=== PATIENT | male | born 1965 | race Caucasian/White ===

== ENCOUNTER 2017-01-21 08:24 | Inpatient (IN) | payer MEDICAID ==
[2017-01-21] MEDS ORDERED: ASPIRIN CHEWTAB 81 MG TABLET ONE (08:45)
[2017-01-21] MEDS ORDERED: METOPROLOL TARTRATE 1 MG/ML 5ML VIAL ONE ×2 (08:46→12:47)
[2017-01-21 08:51] LABS: ABSOLUTE NEUTROPHIL COUNT 4.7 K/mm3 (1.8-7.7); BASO # 0.1 K/mm3 (0.0-0.2); BASO % 1.3 % (0.2-1.0); EOS # 0.3 (0.0-0.5); EOS % 4.1 % (0.9-2.9); HEMATOCRIT 50.2 % (32.0-52.0); HEMOGLOBIN 17.9 gm/l (14.0-18.0); IMM NEUT% 0.4 % (0-1); LYMPH % 25.6 % (15-45); MEAN CELL VOLUME 85.1 fl (80.0-94.0); MEAN CORPUSCULAR HEMOGLOBIN 30.3 pg (27.0-31.0); MEAN CORPUSCULAR HGB CONC 35.7 g/dl (33.0-37.0); MEAN PLATELET VOLUME 9.9 fl (7.4-10.4); MONO # 0.7 (0.0-0.8); MONO % 8.6 % (4-12); PLATELET COUNT 310 K/mm3 (130-400); RED CELL DISTRIBUTION WIDTH 13.3 % (11.5-14.5)
[2017-01-21 09:03] LABS: ALB/GLOB RATIO 1.1 (>1.0); ALBUMIN 4.2 gm/dL (3.5-5.7); CALCIUM 9.3 mg/dL (8.6-10.3)
[2017-01-21 09:06] LABS: TROPONIN I 0.02 ng/ml (0.0-0.06)
--- NOTE | 2017-01-21 09:09 | RAD ---
01/21/2017 9:04 AM CHEST-AP BEDSIDE History: Chest pain Comparison: None Findings: Single AP view of the chest is obtained. The lungs are clear with out effusion or pneumothorax. The cardiomediastinal silhouette is unremarkable.. The osseous structures are intact.. IMPRESSION: No acute intrathoracic process.
[2017-01-21 09:10] LABS: CKMB ISOENZYME 3.1 ng/ml (0.6-6.3)
[2017-01-21] MEDS ORDERED: NITROGLYCERIN OINT 1 G (DOSE) ONE (10:19)
[2017-01-21] MEDS ORDERED: METOPROLOL TARTRATE 1 MG/ML 5ML VIAL IV SCH (12:30)
[2017-01-21] MEDS ORDERED: BISACODYL 10 MG SUP PR PRN (16:12)
[2017-01-21] MEDS ORDERED: SODIUM CHLORIDE 0.9% 100 ML IV PRN (16:12)
[2017-01-21] MEDS ORDERED: BISACODYL 5 MG TABLET.EC PO PRN (16:12)
[2017-01-21] MEDS ORDERED: MENTHOL/CETYLPYRD 1 EACH LOZENGE PO PRN (16:12)
[2017-01-21] MEDS ORDERED: BLISTEX LIPSTICK 1 EACH TP PRN (16:12)
[2017-01-21] MEDS ORDERED: MAGNESIUM HYDROXIDE 30 ML UDCUP PO PRN (16:12)
[2017-01-21 16:19] LABS: CKMB ISOENZYME 8.1 ng/ml (0.6-6.3)
[2017-01-21 16:20] LABS: TROPONIN I 0.58 ng/ml (0.0-0.06)
[2017-01-21] MEDS ORDERED: MORPHINE SULFATE 4 MG/ML SYRINGE IV PRN (16:22)
[2017-01-21] MEDS ORDERED: CLOPIDOGREL BISULFATE 75 MG TABLET PO ONE (16:22)
[2017-01-21] MEDS ORDERED: NITROGLYCERIN 0.4 MG/TAB.SUBL BOT SL PRN (16:22)
[2017-01-21] MEDS ORDERED: MORPHINE SULFATE 2 MG/ML SYRINGE IV PRN (16:38)
[2017-01-21] MEDS: LISINOPRIL 20 MG TABLET PO SCH (16:47)
[2017-01-21] MEDS: AMLODIPINE BESYLATE 5 MG TABLET PO SCH (16:47)
[2017-01-21] MEDS: ENOXAPARIN SODIUM 100 MG/ML SYRINGE SUB-Q SCH (16:48)
[2017-01-21] MEDS: ACETAMINOPHEN 325 MG TABLET PO PRN (16:57)
[2017-01-21] MEDS ORDERED: POTASSIUM CHLORIDE 40 MEQ in SODIUM CHLORIDE 0.9% 500 ML IV ONE (17:00)
[2017-01-21] MEDS ORDERED: PUMP TUBING ONE (18:14)
[2017-01-21] MEDS: ONDANSETRON 4 MG/2ML 2 ML VIAL IV PRN (19:15)
[2017-01-21] MEDS: METOPROLOL TARTRATE 25 MG TABLET PO SCH (20:41)
[2017-01-21] MEDS: LOVASTATIN 20 MG TABLET PO SCH (20:41)
[2017-01-21] MEDS: DOCUSATE SODIUM 100 MG CAPSULE PO SCH (20:46)
[2017-01-21 21:57] LABS: TROPONIN I 0.49 ng/ml (0.0-0.06)
[2017-01-21 21:59] LABS: CKMB ISOENZYME 5.8 ng/ml (0.6-6.3)
[2017-01-22] MEDS: ENOXAPARIN SODIUM 100 MG/ML SYRINGE SUB-Q SCH ×2 (05:00→16:37)
[2017-01-22 05:54] LABS: HEMATOCRIT 46.5 % (32.0-52.0); HEMOGLOBIN 15.7 gm/l (14.0-18.0); MEAN CELL VOLUME 87.4 fl (80.0-94.0); MEAN CORPUSCULAR HEMOGLOBIN 29.5 pg (27.0-31.0); MEAN CORPUSCULAR HGB CONC 33.8 g/dl (33.0-37.0)
[2017-01-22 06:18] LABS: CALCIUM 8.8 mg/dL (8.6-10.3); CHOLESTEROL RISK RATIO 5.6 (4.0-6.7)
--- NOTE | 2017-01-22 06:42 | HP ---
Baldev Fitch ADMIT DATE: 01/21/2017 CHIEF COMPLAINT: Chest pain, heart palpitations. HISTORY OF PRESENT ILLNESS: Baldev is a 51-year-old male with a history of recurrent atrial fibrillation with rapid ventricular response as well as a history of a non-ST myocardial infarction associated with atrial fibrillation with rapid ventricular response. He has a history of noncompliance with medications. He was just admitted in April of last summer down at [facility] in [place] for similar symptoms and a year prior to that he had a similar episode and underwent stress testing which was abnormal showing reversible defect. He did not apparently follow up with cardiology as requested. He presents to the emergency room today after waking up in the morning with chest pain about a 4/10 as well as heart palpitations, it feels similar to his episode he had last summer. The patient does not radiate. He has had no nausea, vomiting, or no sweatiness. He was brought into the emergency room, he was worked up, and found to have atrial fibrillation with rapid ventricular response and a negative cardiac workup otherwise. It was elected to admit him to the hospitalist service for further workup and care. REVIEW OF SYSTEMS: No fever, no chills, no headache, no visual disturbance, no difficulty swallowing. He does have the dull chest pain as noted above which at the time I examined him is resolved. No shortness of breath. No fevers, no chills. No nausea, vomiting, or diarrhea. No change in bowel or bladder habits. No extremity weakness, numbness, tingling, or swelling. PAST MEDICAL HISTORY: 1. Atrial fibrillation with rapid ventricular response. He has had multiple episodes in the past, last one was in April 2016. 2. Non-ST myocardial infarction, this occurred in association with atrial fibrillation with rapid ventricular response. He had an abnormal nuclear medicine stress test in 2014 by report. He had no further follow up due to noncompliance. 3. Hypertension with a history of hypertensive crisis. 4. Heavy alcohol use, this is decreased down to 2 to 3 times a week, no history of withdraw. 5. Chronic kidney disease, not otherwise specified, no further records available. PAST SURGICAL HISTORY: 1. Back surgery in the distant past. 2. Shoulder surgery in the distant past. SOCIAL HISTORY: He just moved to our area last August from [place]. He is now living with his daughter . He is on unemployment. Drinks alcohol 2 to 3 times a week. No history of withdraw. He has about a 30 to 40 pack year history of smoking, though he is trying to quit. He smokes marijuana daily. No other street drug use. FAMILY HISTORY: Father had kidney cancer. OBJECTIVE: VITAL SIGNS: Temperature 97.9, pulse 100, blood pressure 149/102, respirations 18, O2 sat 98% on room air. GENERAL: This is a well-developed, well-nourished middle aged male. He is alert, calm, and pleasant in no distress what so ever. HEENT: Normocephalic, atraumatic. Tympanic membranes intact. Orophyarnx is moist. NECK: Supple. No JVD. LUNGS: Clear. No wheezes or rhonchi. HEART: Regular rate and rhythm. No murmurs, rubs, or gallops at the time I examined him. ABDOMEN: Soft, nontender, nondistended. No rebound or guarding. EXTREMITIES: No edema. LABORATORY: CBC with a white count of 7.9, hemoglobin 17.9, hematocrit 50.2, platelets 310. Chemistry panel, sodium 140, potassium 3.1, chloride 107, carbon dioxide 22, BUN 21, creatinine 1.2, glucose of 124, magnesium of 1.9, troponin 0.02. CK-MB of 3.1. DIAGNOSTICS: EKG shows atrial fibrillation with rapid ventricular response with a rate in the low 100's. There is no acute ST segment abnormalities. Chest x-ray shows normal cardiac silhouette, no infiltrates or effusions. ASSESSMENT: 1. Recurrent atrial fibrillation with rapid ventricular response. Patient has recurrent paroxysmal atrial fibrillation. 2. Chest pain in the context of above with a history of abnormal stress test and a non-ST myocardial infarction in a similar situation. 3. Hypokalemia, mild. 4. Hypertension with history of hypertensive urgency and longstanding medical noncompliance. 5. Daily alcohol use with no history of withdraw. 6. Chronic kidney disease stage II. PLAN: We have admitted to [facility]. We will check serial cardiac enzymes. We will try to resume him on his usual medications. Given his abnormal stress test in the past, if he does bump his enzymes we will most likely attempt to get him set up with cardiology for more invasive workup instead of repeating a stress test. We will do prophylactic doses of Lovenox unless his enzymes turn at which point we will place him on a full dose. Further care is dictated by clinic course. JOB: [id number]
[2017-01-22] MEDS: METOPROLOL TARTRATE 25 MG TABLET PO SCH ×3 (07:56→20:25)
[2017-01-22] MEDS: AMLODIPINE BESYLATE 5 MG TABLET PO SCH ×2 (07:56→08:08)
[2017-01-22] MEDS: LISINOPRIL 20 MG TABLET PO SCH ×2 (07:56→08:08)
--- NOTE | 2017-01-22 08:44 | PDOC43 ---
- Subjective Chief Complaint: Palpitations, CP No CP since admit. Converted to NSR shortly after admit on 01/21. Subjective: Reports Tolerating Diet Well, Denies Shortness of Breath, Denies Cough, Denies Chest Pain, Denies Abdominal Pain, Denies Nausea, Denies Vomiting , Denies Fever, Denies Chills - Objective Vital Signs Temperature 97.7 F 01/22/17 07:21 Pulse Rate 70 01/22/17 07:57 Respiratory Rate 14 01/22/17 07:59 Blood Pressure 170/109 01/22/17 07:57 O2 Saturation by Pulse Oximetry 97 01/22/17 07:57 Oxygen Delivery Method Room Air Oxygen Flow Rate 0 Intake and Output 01/21/17 01/22/17 01/23/17 06:59 06:59 06:59 Intake Total 1515 Output Total 1700 400 Balance -185 -400 General: Alert, Oriented x3, Cooperative, No Acute Distress HEENT: Atraumatic Lungs: Clear to Auscultation Bilaterally Cardiovascular: Regular Rate and Rhythm Abdomen: Soft, Normal Bowel Sounds, Non-Distended, No Tenderness Extremities: Normal Pulses, No Edema Laboratory 01/22/17 05:30 01/22/17 05:30 Laboratory Tests 01/21/17 01/21/17 01/21/17 08:30 15:50 21:20 CK-MB (CK-2) 3.1 8.1 H 5.8 Troponin I 0.02 0.58 H* 0.49 H Triglycerides Cholesterol Cholesterol Risk Factr LDL Cholesterol VLDL Cholesterol HDL Cholesterol 01/22/17 05:30 CK-MB (CK-2) Troponin I 0.31 H Triglycerides 150 Cholesterol 158 Cholesterol Risk Factr 5.6 LDL Cholesterol 100 VLDL Cholesterol 30 HDL Cholesterol 28 L Current Medications: Current meds reviewed in EMR. - Problems: Assessment/Plan (1) NSTEMI (non-ST elevated myocardial infarction) Status: AcuteAssessment/Plan: Chest pain and elevated enzymes in context of parxysmal a fib with RVR and HTN. History of abnormal Sestamibi in 2014 with no further f/u d/t non-compliance. All sx resolved and enzymes trending down now that converted back to NSR and BP better controlled. Needs cath at some point, but may be reasonable to do as outpt vs urgent transfer- will d/w cardiology. Echo pending this AM. Con't on full dose lovenox, plavix, ASA, statin, metoprolol. Add Imdur. (2) Atrial fibrillation Qualifiers: Atrial fibrillation type: paroxysmal Qualifier Code: (I48.0) Paroxysmal atrial fibrillation Status: AcuteAssessment/Plan: Recurrent paroxysmal A fib with tachycardia/RVR. Converted back to NSR shortly after admit. Similar episodes multiple times in past- last one 06/24. As above. (3) HTN (hypertension) Qualifiers: Hypertension type: essential hypertension Qualifier Code: (I10) Essential (primary) hypertension Status: AcuteAssessment/Plan: As above. Pt off all meds x 6 months d/t non-compliance. History of difficult to control. Improved on metoprolol, lisinopril, amlodipine. Add Imdur as above. VTE Prophylaxis: Lovenox. Disposition: Unknown.
[2017-01-22] MEDS: DOCUSATE SODIUM 100 MG CAPSULE PO SCH ×2 (09:32→20:29)
[2017-01-22] MEDS: CLOPIDOGREL BISULFATE 75 MG TABLET PO SCH (09:33)
[2017-01-22] MEDS: ASPIRIN (ENTERIC COATED) 325 MG TABLET.EC PO SCH (09:33)
[2017-01-22] MEDS: ISOSORBIDE MONONITRATE 60 MG TAB.SR PO SCH (09:33)
--- NOTE | 2017-01-22 10:48 | PDOC36 ---
Provider Note Subject: Cardiology Note: Discussed with Cardiologists Dr. Burnett at [facility] and Dr. Mcmanus at [facility]. Pt stable. No interventional cardiology available at until next week and no beds at [facility]. Pt is stable and appropriate for medical management with plans for outpt cardiology follow up/cath. Will get echo as planned and continue with medical management. No reason to do Stress test as pt had abnormal Lexiscan in 2015 with reversible defect in Cx and RCA distribution. Anticipate d/c in 1-2 days on medical management with arrangements made for prompt outpatient cardiology.
[2017-01-22] MEDS: ACETAMINOPHEN 325 MG TABLET PO PRN (13:12)
[2017-01-22] MEDS ORDERED: HYDROCODONE/ACETAMINOPHEN 5/325MG TABLET PO PRN (14:38)
[2017-01-22] MEDS: ONDANSETRON 4 MG/2ML 2 ML VIAL IV PRN ×2 (15:02→19:06)
[2017-01-22] MEDS: OXYCODONE HCL 5 MG TABLET PO PRN ×2 (16:37→20:27)
[2017-01-22] MEDS: LOVASTATIN 20 MG TABLET PO SCH (20:25)
[2017-01-22] MEDS ORDERED: ONDANSETRON 4 MG/2ML 2 ML VIAL IV ONE (21:35)
[2017-01-22] MEDS ORDERED: PROMETHAZINE HCL 12.5 MG in SODIUM CHLORIDE 0.9% 50 ML IV PRN (23:59)
[2017-01-23] MEDS ORDERED: PROMETHAZINE HCL 25 MG/ML VIAL ONE
[2017-01-23] MEDS ORDERED: SODIUM CHLORIDE 0.9% 50 ML IV ONE (00:01)
[2017-01-23] MEDS ORDERED: PUMP TUBING ONE (00:06)
[2017-01-23] MEDS: ENOXAPARIN SODIUM 100 MG/ML SYRINGE SUB-Q SCH (05:25)
[2017-01-23 06:12] LABS: HEMOGLOBIN 15.2 gm/l (14.0-18.0); MEAN CELL VOLUME 86.6 fl (80.0-94.0); MEAN CORPUSCULAR HEMOGLOBIN 29.9 pg (27.0-31.0); MEAN CORPUSCULAR HGB CONC 34.5 g/dl (33.0-37.0); RED CELL DISTRIBUTION WIDTH 13.4 % (11.5-14.5)
[2017-01-23 06:45] LABS: CALCIUM 9.1 mg/dL (8.6-10.3)
[2017-01-23 07:52] VITALS: BP 156/94
--- NOTE | 2017-01-23 09:47 | PDOC43 ---
- Subjective Chief Complaint: Palpitations, CP, now ERAZO RN reports pt with headache over night, then sleepy after phenergan. Wakes easily, no nausea. Some PVCs noted, but no sustained tachycardia, actually bradycardic. Hasn't had breakfast yet, sleeping. Pt reports feeling fine this am, not short of breath, no pains, headache resolved. Would like to go home. - Objective Vital Signs Temperature 97.8 F 01/23/17 07:48 Pulse Rate 64 01/23/17 07:48 Respiratory Rate 15 01/23/17 07:50 Blood Pressure 156/94 01/23/17 07:48 O2 Saturation by Pulse Oximetry 97 01/23/17 08:11 Oxygen Delivery Method Room Air Oxygen Flow Rate 0 Vital Signs Last 12 Hours Temp Pulse Resp BP Pulse Ox 01/23/17 08:11 97 01/23/17 07:50 15 01/23/17 07:48 97.8 F 64 15 156/94 99 01/23/17 07:00 160/97 01/23/17 05:00 52 16 153/87 01/23/17 02:49 97.6 F 50 12 136/94 96 01/22/17 22:42 97.4 F 60 16 155/97 94 Intake and Output 01/21/17 01/22/17 01/23/17 23:59 23:59 23:59 Intake Total 550 1900 900 Output Total 850 1700 300 Balance -300 200 600 General: Alert, Cooperative, No Acute Distress HEENT: Atraumatic Lungs: Clear to Auscultation Bilaterally, Normal Air Movement Cardiovascular: Regular Rate and Rhythm, No Murmur Abdomen: Soft, Normal Bowel Sounds, Non-Distended Extremities: No Edema Neurological: Normal Speech Psych/Mental Status: Normal Affect, Normal Mood Laboratory 01/23/17 05:30 01/23/17 05:30 01/23/17 05:30 Estimated GFR 58 L Troponin I 0.17 H Laboratory Tests 01/21/17 01/21/17 01/21/17 08:30 15:50 21:20 CK-MB (CK-2) 3.1 8.1 H 5.8 Troponin I 0.02 0.58 H* 0.49 H 01/22/17 01/23/17 05:30 05:30 CK-MB (CK-2) Troponin I 0.31 H 0.17 H Current Medications: Current meds reviewed in EMR. Active Medications Acetaminophen (Tylenol) 650 mg PO Q4H PRN PRN Reason: Pain or Temperature > 100.5 F Last Admin: 01/22/17 13:12 Dose: 650 mg Acetaminophen/Hydrocodone Bitart (Adrian 5/325) 1 tab PO Q4H PRN PRN Reason: Headache Last Admin: 01/22/17 15:00 Dose: 1 tab Amlodipine Besylate (Norvasc) 10 mg PO DAILY [facility] Last Admin: 01/22/17 08:08 Dose: Not Given Aspirin (Ecotrin) 325 mg PO DAILY [facility] Last Admin: 01/22/17 09:33 Dose: 325 mg Benzocaine/Menthol (Cepacol) 1 each PO PRN PRN PRN Reason: Sore Throat Bisacodyl (Dulcolax) 10 mg SC DAILY PRN PRN Reason: Constipation Bisacodyl (Dulcolax) 5 mg PO DAILY PRN PRN Reason: Constipation Clopidogrel Bisulfate (Plavix) 75 mg PO DAILY [facility] Last Admin: 01/22/17 09:33 Dose: 75 mg Docusate Sodium (Colace) 100 mg PO BID [facility] Last Admin: 01/22/17 20:29 Dose: Not Given Enoxaparin Sodium (Lovenox) 100 mg SUB-Q Q12H [facility] Last Admin: 01/23/17 05:25 Dose: 100 mg Sodium Chloride (Sodium Chloride 0.9%) 100 mls @ 25 mls/hr IV PRN PRN PRN Reason: Flush Promethazine HCl 12.5 mg/ (Sodium Chloride) 50.5 mls @ 200 mls/hr IV Q4H PRN PRN Reason: Nausea/Vomiting Last Admin: 01/23/17 00:21 Dose: 200 mls/hr Lisinopril (Prinivil) 20 mg PO DAILY [facility] Last Admin: 01/22/17 08:08 Dose: Not Given Lovastatin (Mevacor) 40 mg PO QPM [facility] Last Admin: 01/22/17 20:25 Dose: 40 mg Magnesium Hydroxide (Milk Of Magnesia) 30 ml PO DAILY PRN PRN Reason: Constipation Metoprolol Tartrate (Lopressor) 25 mg PO BID [facility] Last Admin: 01/22/17 20:25 Dose: 25 mg Morphine Sulfate (Morphine Sulfate) 2 - 4 mg IV Q15M PRN PRN Reason: Chest Pain Morphine Sulfate (Morphine Sulfate) 2 - 4 mg IV Q15M PRN PRN Reason: Chest Pain Nitroglycerin (Nitrostat) 0.4 mg SL Q5M PRN PRN Reason: Chest Pain Ondansetron HCl (Zofran) 4 mg IV Q4H PRN PRN Reason: Nausea/Vomiting Last Admin: 01/22/17 19:06 Dose: 4 mg Oxycodone HCl (Roxicodone) 5 - 10 mg PO Q3H PRN PRN Reason: Pain Last Admin: 01/22/17 20:27 Dose: 10 mg Petrolatum/Paraffin/Mineral Oil (Blistex) 1 each TP PRN PRN PRN Reason: Dry and/or chapped lips Sodium Chloride (Normal Saline 10ml Flush) 10 ml IV Q8HR PAT Last Admin: 01/23/17 01:19 Dose: Not Given Sodium Chloride (Normal Saline 10ml Flush) 10 ml IV PRN PRN Last Admin: 01/22/17 15:02 Dose: 10 ml Sodium Chloride (Normal Saline 10ml Flush) 10 - 50 ml IV PRN PRN PRN Reason: IV Flush - Problems: Assessment/Plan (1) NSTEMI (non-ST elevated myocardial infarction) Status: AcuteAssessment/Plan: Chest pain and elevated enzymes in context of paroxysmal a fib with RVR and HTN. History of abnormal Sestamibi in 2014 with no further f/u d/t non-compliance, now suspect demand ischemia due to tachycardia in setting of otherwise stable coronary artery disease. . All sx resolved and enzymes trending down now that converted back to NSR and BP better controlled. Needs cath at some point, but will do as outpt, no beds available at this time, pt promises to follow up.. Echo results pending, but previous EF 60% 2015. Continuing meds for CAD, currently on full dose lovenox, plavix, ASA, statin, metoprolol. Addition of Imdur resulted in headache, will stop. (2) Atrial fibrillation Qualifiers: Atrial fibrillation type: paroxysmal Qualifier Code: (I48.0) Paroxysmal atrial fibrillation Status: AcuteAssessment/Plan: Recurrent paroxysmal A fib with tachycardia/RVR. Converted back to NSR shortly after admit. Similar episodes multiple times in past- last one 06/24. Pt's noncompliance raises risk of anticoagulation. Continue metoprolol, and would hope that frequency (and tolerance) of atrial fib improves with correction of coronary artery disease. (3) HTN (hypertension) Qualifiers: Hypertension type: essential hypertension Qualifier Code: (I10) Essential (primary) hypertension Status: AcuteAssessment/Plan: Pt had been off all meds x 6 months d/t non-compliance. History of difficult to control. Improved on metoprolol, lisinopril, amlodipine. high BP and low K suggest possibility of hyperaldosteronism. Could consider use of spironolactone as outpt. Imdur tried for help with BP, but headache makes us stop. VTE Prophylaxis: Lovenox. Disposition: Unknown.
[2017-01-23] MEDS: LISINOPRIL 20 MG TABLET PO SCH (10:05)
[2017-01-23] MEDS: CLOPIDOGREL BISULFATE 75 MG TABLET PO SCH (10:05)
[2017-01-23] MEDS: ASPIRIN (ENTERIC COATED) 325 MG TABLET.EC PO SCH (10:05)
[2017-01-23] MEDS: DOCUSATE SODIUM 100 MG CAPSULE PO SCH (10:05)
[2017-01-23] MEDS: METOPROLOL TARTRATE 25 MG TABLET PO SCH (10:05)
[2017-01-23] MEDS: AMLODIPINE BESYLATE 5 MG TABLET PO SCH (10:05)
[2017-01-23] MEDS: ISOSORBIDE MONONITRATE 60 MG TAB.SR PO SCH (10:06)
[2017-01-23] MEDS: ACETAMINOPHEN 325 MG TABLET PO PRN (10:06)
--- NOTE | 2017-01-23 16:42 | DS ---
BIB MCINTYRE [id number] DATE OF ADMISSION: 01/21/2017 DATE OF DISCHARGE: 01/23/2017 DISCHARGE DIAGNOSES: 1. Known coronary artery disease, with previous abnormal Myoview in 2014. 2. Atrial fibrillation, with tachycardia. 3. Non-ST elevation [place] associated with rapid heart rate. 4. Chronic systolic congestive heart failure, with an ejection fraction of 35-40% on echocardiogram. OTHER DIAGNOSES: 1. Hypertension, with history of hypertensive crisis. 2. Hypokalemia. Consider hyperaldosteronism. 3. Chronic kidney disease. 4. History of heavy alcohol use. 5. Dyslipidemia, with low HDL. PROCEDURES DONE HERE: Echocardiogram performed on 01/23/2017, showing an estimated ejection fraction of 35-40%. Inferior septal and inferior lateral maldonado were severely hypokinetic. Grade-2 diastolic dysfunction, consistent with impaired relaxation and normal filling pressures. Unable to estimate right ventricular systolic pressure in the absence of significant tricuspid regurgitation. REASON FOR ADMISSION: The patient is a 51-year-old male who has had a history of recurrent atrial fibrillation with rapid ventricular response, as well as previous non-ST elevation [place] associated with such. He has had previous admissions at [facility] in [place] for similar symptoms last summer. In 2014 he had had stress testing which has shown a reversible defect previously. He had not followed-up with cardiology as requested. He presented to the emergency room today after waking-up with chest pain, about 4 out of 10, as well as heart palpitations, similar to previous symptoms. He was brought to the ER and noted to have atrial fibrillation with rapid ventricular response and initial negative cardiac evaluation, and was referred to the Hospitalist Service. The patient's initial labs had shown a white blood cell count of 7.9, hemoglobin 17.9 and platelets 310. Chemistry profile initially had shown a troponin of 0.02 and a CK-MB of 3.1, with a sodium of 140, potassium 3.1, glucose 124, magnesium 1.9 and calcium 9.3. He was admitted to [facility], serial cardiac enzymes, given a prophylactic dose of Lovenox, and his regular medicines were resumed. The patient did have an increase in his troponin to 0.58 and a CK-MB of 8.1; this trended downward afterward and was 0.17 by 01/23/2017. The patient had a lipid profile showing an HDL of 28, LDL of 100 and triglycerides 150. He received potassium, with some degree of correction, but was still 3.5 on 01/23/2017. His hemoglobin declined slightly with hydration, but no other significant abnormalities. His chest x-ray had shown no acute process. His echocardiogram was as above. He became asymptomatic, with good rate control, and was managed with metoprolol, with development of relative bradycardia that he otherwise tolerated well. He did receive Imdur, which gave him a headache, so this was discontinued on 01/23/2017. He was also given full-dose Lovenox, aspirin and Plavix as well. By 01/23/2017, he was asymptomatic. Calls had been made to cardiology, but there were no beds available, and so it was chosen that he would follow-up as an outpatient for this, which he promised to do. DISCHARGE MEDICATIONS: He is planned to be discharged on: 1. Amlodipine 10 mg by mouth daily. 2. Aspirin 325 mg daily. 3. Atorvastatin 40 mg daily. 4. Losartan 100 mg daily. 5. Metoprolol succinate 50 mg by mouth daily. 6. Nitroglycerin as needed. PLAN: He is to seek medical attention if having worsening symptoms. He has follow-up appointments with Dr. Avila Burnett, [employer], on 01/28/2017 at 3:15 P.M., as well as [facility] in [place]. Activities as tolerated, but if having dyspnea or chest discomfort to rest. CONDITION ON DISCHARGE: [place] to be stable. cc: Dr. Ho Burnett, [employer] [facility] [place]
== END 2017-01-23 11:32 | disposition home or self-care (01) | DRG 281 ==
LOC: ED 08:24 → ICU 10:51 → OBSVTOIN 10:51
PROVIDERS: ADMIT Family Medicine; ATTEND Family Medicine
DX: I25.10 Atherosclerotic heart disease of native coronary artery without angina pectoris (principal); I21.4 Non-ST elevation (NSTEMI) myocardial infarction; I13.0 Hypertensive heart and chronic kidney disease with heart failure and stage 1 through stage 4 chronic kidney disease, or unspecified chronic kidney disease; I50.22 Chronic systolic (congestive) heart failure; E87.6 Hypokalemia; N18.2 Chronic kidney disease, stage 2 (mild); I48.0 Paroxysmal atrial fibrillation; F10.20 Alcohol dependence, uncomplicated; E78.5 Hyperlipidemia, unspecified